=== PATIENT | male | born 1990 | race Caucasian/White ===

== ENCOUNTER 2024-01-21 15:39 | Emergency (ER) | payer SELFPAY ==
--- NOTE | ~2024-01-21 | US_ITS ---
TESTICULAR ULTRASOUND (Doppler ultrasound interrogation techniques used as needed for this exam.) Ordering provider: Tristan Harding APRN History: . scrotal pain, hx of testicular torsion . Comparison: None. FINDINGS: TESTICLES: Normal in size. The right measures 4.4x 2.5x 3 cm and the left measures 4.1x 2.1x 2.7 cm. Normal echogenicity bilaterally without mass lesion. Normal Doppler flow bilaterally. EPIDIDYMIDES: Normal in size. The right measures 1 cm and the left 1.5 cm. Normal echogenicity bilate rally. Both demonstrate normal Doppler flow. Right epididymal cyst is seen measuring 2.4 x 0.3 x 0.4 cm. HYDROCELE: Trace on the right. VARICOCELE: None. OTHER ABNORMALITY: None seen. IMPRESSION: Small epididymal cyst on the right side. Trace of hydrocele on the right side. No definite evidence o f torsion. Otherwise, normal testicular ultrasound. Reviewed, dictated and finalized at location A. IMPRESSION: Small epididymal cyst on the right side. Trace of hydrocele on the right side. No definite evidence of torsion. Otherwise, normal testicular ultrasound.
[2024-01-21 15:47] VITALS: BP 138/85; PULSE 63; RESP 20; TEMP 36.6; O2SAT 99
--- NOTE | 2024-01-21 15:48 | ED_ITS ---
HPI - Male Genitourinary General Chief complaint: Urogenital-Male Stated complaint: left testical pain Time Seen by Provider: 01/21/24 15:47 History of Present Illness HPI Narrative: 33-year-old male presents to the emergency room for evaluation of gradual onset right testicular pain over several days. Patient denies any scrotal injury or trauma. Denies any dysuria. Denies any penile discharge. Denies concerns for STDs. Patient states he does have a history of a testicular tor bharti over 20 years ago. Related Data Allergies Allergy/AdvReac Type Severity Reaction Status Date / Time No Known Allergies Allergy Unverified 01/21/24 15:40 Review of Systems Review of Systems: ROS unremarkable except for noted in HPI Exam Narrative: GENERAL: Well-appearing, well-nourished, no physical limitations, and in no acute distress. HEAD: Normocephalic, atraumatic. EYES: Conjunctivae normal, PERRLA and EOMI. CHEST: Clear to auscultation. No respiratory distress. No wheezes rales or rhonchi. HEART: Regular rate and rhythm. No murmur heard. Normal peripheral pulses. ABDOMEN: Soft, nontender, nondistended, normal active bowel sounds. : No testicular swelling, + Prehns sign, Cremasteric reflex present bilaterally BACK: No CVA tenderness EXTREMITIES: Normal range of motion. No edema. No clubbing or cyanosis SKIN: Warm, dry, no rash. No noted wounds NEURO: No focal deficits. Alert and oriented x3. MAEW. CN's II-XI intact bilaterally, normal gait PSYCH: Cooperative. Normal mood and affect. Course Vital Signs Vital signs: Vital Signs Temperature 36.6 C 01/21/24 15:47 Pulse Rate 63 01/21/24 15:47 Respiratory Rate 20 01/21/24 15:47 Blood Pressure 138/85 01/21/24 15:47 Pulse Oximetry 99 01/21/24 15:47 Oxygen Delivery Room Air 01/21/24 15:47 Temperature 36.6 C 01/21/24 15:47 Pulse Rate 63 01/21/24 15:47 Respiratory Rate 20 01/21/24 15:47 Blood Pressure 138/85 01/21/24 15:47 Pulse Oximetry 99 01/21/24 15:47 Oxygen Delivery Room Air 01/21/24 15:47 Discharge Plan Discharge Clinical Impression: Hydrocele Patient Disposition: Home, Self-Care Condition: Stable Instructions: Antibiotic Form, Hidrocele (ED), Testicle Pain (ED) Prescriptions: New naproxen 500 mg tablet,delayed release (DR/EC) 500 mg PO BID Qty: 14 0RF Follow-up/Referrals: Alexander Trinidad MD [Physician] - UNKNOWN,DOCTOR [Primary Care Provider] - Time of Disposition: 17:40
[2024-01-21 17:28] LABS: Appearance Urine Clear (Clear); Bilirubin Urine Negative (Negative); Blood Urine Negative (Negative); Color Urine Yellow (Yellow); Glucose Urine UA Negative (Negative); Ketones Urine 2+ mg/dL (Negative); Leukocyte Esterase Ur Negative LEU/UL (Negative); Nitrate Urine Negative (Negative); Protein Urine Negative (Negative); Specific Grav Ur 1.031 (1.001-1.035); pH Urine 5.5 (5.0-9.0)
[2024-01-21 17:29] LABS: Add Urine Microscopic? NO
[2024-01-21 17:57] VITALS: BP 134/76; PULSE 63; RESP 18; TEMP 36.7; O2SAT 99
== END 2024-01-21 17:58 | disposition home or self-care (01) ==
PROVIDERS: Emergency Provider Nurse Practitioner Family
DX: N43.3 Hydrocele, unspecified (principal)
CPT/HCPCS: 76870; 81003; 93976; 99284

== ENCOUNTER 2025-06-23 08:53 | Emergency (ER) | payer OTHER, SELFPAY ==
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
[2025-06-23 08:58] VITALS: BP 137/80; PULSE 79; RESP 18; TEMP 36.5; O2SAT 99
--- OUTSIDE RECORDS SUMMARY | 2025-06-23 09:07 | XMS_ITS | Clinical Summary ---
Author Organization [facility] [address] [facility] Address [address] [place] [address] Care Team Providers Care Dredge Pump Operator Name Role Phone Rayna Dickson Primary Care Provider [phone] Allergies No known active allergies Medications omeprazole (PriLOSEC) 20 mg capsuleIndicatio ns:Gastroesophag eal reflux disease, unspecified whether esophagitis present Take 1 capsule (20 mg total) by mouth daily 30 capsule 1 09/13/[address] (VOLTAREN) 75 mg EC tablet Take one tablet PO BID PRN 60 tablet 09/24/2020 Active tiZANidine (ZANAFLEX) 4 mg tablet Take one tablet PO HS PRN 30 tablet 09/24/2020 Active Active Problems Problem Noted Date Diagnosed Date BMI 39.0-39.9,adult 09/13/2020 Assessment & Plan (09/13/2020 1:50 PM GROUND SUPPORT EQUIPMENT MECHANIC): Obesity is unchanged. Discussed the patient's BMI. The BMI is above average. BMI management plan is completed. BMI Follow-up includes: nutrition counseling, exercise counseling and education provided. Testicular torsion 09/13/2020 Encounter to establish care 09/13/2020 Assessment & Plan (09/13/2020 9:37 PM GROUND SUPPORT EQUIPMENT MECHANIC): Fasting labs entered, will notify patient of results as available Polyarthralgia 09/13/2020 Assessment & Plan (09/13/2020 9:35 PM GROUND SUPPORT EQUIPMENT MECHANIC): Will evaluate further with imaging and labs, will notify of results as available Sciatica of right side 09/13/2020 Assessment & Plan (09/13/2020 9:36 PM GROUND SUPPORT EQUIPMENT MECHANIC): Will evaluate further with imaging, will notify of results as available Will refer to PT for further evaluation and treatment Neck pain 09/13/2020 Assessment & Plan (09/13/2020 9:36 PM GROUND SUPPORT EQUIPMENT MECHANIC): Will evaluate further with imaging, will notify of results as available Cervical radiculopathy 09/13/2020 Assessment & Plan (09/13/2020 9:36 PM GROUND SUPPORT EQUIPMENT MECHANIC): Will evaluate further with imaging, will notify of results as available Gastroesophageal reflux disease 09/13/2020 Assessment & Plan (09/13/2020 9:36 PM GROUND SUPPORT EQUIPMENT MECHANIC): Advised cutting back on caffeine, weight loss Add prilosec every day Discussed gi consult if unresolving or if worsening Immunizations Immunization Administration Dates Next Due Influenza, Unspecified 04/05/2020(Deferred: Giselle ent Refused) Medical History Medical History Date Comments ADHD (attention deficit hyperactivity disorder) GERD (gastroesophageal reflux disease) Gastric reflux Family History Medical History Relation Name Comments No Known Problems Father No Known Problems Mother Relation Name Status Comments Father Alive Mother Alive Social History Tobacco Use Types Packs/Day Years Used Date Smoking Tobacco: Never Smokeless Tobacco: Never PHQ-2 Answer Date Recorded PHQ-2 Total Score (If total score is 3 or more points, staff should administer the PHQ-9) 0 09/13/2020 Personal Safety Answer Date Recorded Getting School Help Needed Not on file 09/05 Sex and Gender Information Value Date Recorded Sex Assigned at Not on file Legal Sex Male 3:25 PM GROUND SUPPORT EQUIPMENT MECHANIC Gender Identity Not on file Sexual Orientation Not on file 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 Not on file Not on file Last Filed Vital Signs Vital Sign Reading Time Taken Comments Blood Pressure 100/75 09/13/2020 1:46 PM GROUND SUPPORT EQUIPMENT MECHANIC Pulse 75 09/13/2020 1:46 PM GROUND SUPPORT EQUIPMENT MECHANIC Temperature 36.1 C (96.9 F) 09/13/2020 1:46 PM GROUND SUPPORT EQUIPMENT MECHANIC Respiratory Rate - - Oxygen Saturation 99% 09/13/2020 1:46 PM GROUND SUPPORT EQUIPMENT MECHANIC Inhaled Oxygen Concentration - - Weight 135.6 kg (299 lb) 09/24/2020 8:31 AM CDT Height 185.4 cm (6' 1) 09/24/2020 8:31 AM CDT Body Mass Index 39.45 09/24/2020 8:31 AM CDT Plan of Treatment Not on file Insurance CHO[facility] HMO/PPO Address: [place] [address] Care Teams Dredge Pump Operator Relationship Specialty Start Date End Date Rayna Dickson PA PCP - General Gas Main Fitter 09/11/20
--- OUTSIDE RECORDS SUMMARY | 2025-06-23 09:07 | XMS_ITS | Clinical Summary ---
Author Organization [facility] Address [address] [place] [address] Care Team Providers Care Motion Study Analyst Name Role Phone Kim Banda MD Primary Care Provider [phone] Source Comments [facility],non-owned Affiliates and Associated Physician Practices is amultiple site organization consisting of ambulatory clinics and hospital sitesin [place], [place], [place] and [place]. This disclosure is being madepursuant to the Care Everywhere program and may not contain all information available regarding this patient. Last updated 18.[facility] Allergies No known active allergies Medications * Be aware that medications may not be up to date on this document. Alwaysverify current medications with the patient. No known medications Active Problems Problem Noted Date Diagnosed Date Abdominal pain 11/08/2009 Overview (04/05/2015): Family History Medical History Relation Name Comments IBD Mother Relation Name Status Comments Mother Social History Tobacco Use Types Packs/Day Years Used Date Smoking Tobacco: Former Cigarettes 0 Q uit: 10/09/2009 Alcohol Use Standard Drinks/Week Comments No 0 (1 standard drink = 0.6 oz pur e alcohol) Sex and Gender Information Value Date Recorded Sex Assigned at Not on file Legal Sex Male 8:39 AM ELECTRICIAN THIRD Gender Identity Not on file Sexual Orientation Not on file Last Filed Vital Signs Vital Sign Reading Time Taken Comments Blood Pressure 116/64 11/08/2009 1:39 PM CDT Pulse - - Temperature - - Respiratory Rate - - Oxygen Saturation - - Inhaled Oxygen Concentration - - Weight 103.2 kg (227 lb 9.6 oz) 11/08/2009 1:39 PM CDT Height 177.1 cm (5' 9.72) 11/08/2009 1:39 PM CD T Body Mass Index 32.92 11/08/2009 1:39 PM CDT Plan of Treatment Health Maintenance Due Date Last Done Comments HIV SCREENING 2007 HEPATITIS C SCREENING 06/04/2010 DTAP/TDAP/TD VACCINES (1 - Tdap) 2011 HEPATITIS B VACCINE (1 of 3 - 19+ 3-dose series) 2011 HPV VACCINE (1 - 3-dose SCDM series) 2019 DEPRESSION SCREENING 07/06/2024 COVID-19 VACCINE (1 - 2024-2 6 season) 2025 INFLUENZA VACCINE (#1) 2025 ZOSTER VACCINE (1 of 2) 2042 HIB VACCINE Aged Out No longer eligi ble based on patient's age to complete this topic MENINGOCOCCAL (Group B) VACC INE SHARED DECISION-MAKING Aged Out No longer eligibl e based on patient's age to complete this topic MENINGOCOCCAL GROUPS A/C/Y/W VACCINE Aged Out No longer eligible b ased on patient's age to complete this topic PNEUMOCOCCAL VACCINE Aged Out No long er eligible based on patient's age to complete this topic Care Teams Motion Study Analyst Relationship Specialty Start Date End Date Kim Banda MD PCP - General 11/08/09
[2025-06-23 09:21] VITALS: BP 149/75; PULSE 78; RESP 14; O2SAT 98
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
[2025-06-23 09:52] LABS: Hematocrit 44.8 % (42.0-52.0); Hemoglobin 14.8 g/dL (14.0-18.0); Immature Granulocyte Percent A 0.6 % (0-0.5); Lymphocytes Absolute Auto 1.18 K/mm3 (0.9-3.2); Mean Corpuscular HGB Conc 33.0 g/dl (32-36); Mean Corpuscular Hemoglobin 29.0 pg (26-34); Mean Corpuscular Volume 87.7 fl (80-100); Nucleated Red Blood Cells Absolute Auto 0.000 K/mm3 (0.0-0.012); Nucleated Red Blood Cells Perc 0.0 % (0.0-0.2); Platelet Count Result 227 k/mm3 (150-375); Red Blood Count 5.11 M/mm3 (4.6-6.20); White Blood Count 7.2 K/mm3 (4.5-10.0)
[2025-06-23 10:09] LABS: Alanine Aminotransferase 39 U/L (6-50); Albumin Level 4.5 g/dL (3.5-5.1); Alkaline Phosphatase 62 U/L (38-126); Anion Gap 8 mmol/L (4-12); Aspartate Amino Transferase 38 U/L (17-59); Bilirubin,Total 0.6 mg/dL (0.2-1.3); Blood Urea Nitrogen 17 mg/dL (9-20); Calcium 9.4 mg/dL (8.4-10.2); Carbon Dioxide 26 mmol/L (22-30); Chloride 104 mmol/L (98-107); Estimated CRCL calculation 125 ml/min; Estimated Glomerular Filt Rate > 60; Glucose 113 mg/dL (65-110); Potassium 4.6 mmol/L (3.4-5.0); Sodium 138 mmol/L (137-145); Total Protein 7.9 g/dL (6.3-8.2)
--- OUTSIDE RECORDS SUMMARY | 2025-06-23 10:43 | XMS_ITS | Clinical Summary ---
Author Organization [facility] Address [address] [place] [address] Care Team Providers Care Railway Track Plant Operator Name Role Phone Kim Banda MD Primary Care Provider [phone] Source Comments [facility],non-owned Affiliates and Associated Physician Practices is amultiple site organization consisting of ambulatory clinics and hospital sitesin [place], [place], [place] and [place]. This disclosure is being madepursuant to the Care Everywhere program and may not contain all information available regarding this patient. Last updated 18.[facility] Allergies No known active allergies Medications * [...] on file Legal Sex Male 8:39 AM AGRICULTURAL SCIENCES PROFESSOR Gender Identity Not on file Sexual Orientation [...] age to complete this topic Care Teams Railway Track Plant Operator Relationship Specialty Start Date End Date Kim Banda MD PCP - General 11/08/09
--- OUTSIDE RECORDS SUMMARY | 2025-06-23 10:43 | XMS_ITS | Clinical Summary ---
Author Organization [facility] Address [address] [place] [address] Care Team Providers Care Seal Delivery Vehicle Team Technician Name Role Phone Unavailable Primary Care Provider Unavailabl e Social History Tobacco Use Types Packs/Day Years Used Date Smoking Tobacco: Never Assessed Sex and Gender Information Value Date Recorded Sex Assigned at Not on file Legal Sex Male 4:45 PM CDT Gender Identity Not on file Sexual Orientation Not on file Last Filed Vital Signs Vital Sign Reading Time Taken Comments Blood Pressure 134/82 02/18/2018 1:12 PM CDT Pulse 67 02/18/2018 1:12 PM CDT Temperature - - Respiratory Rate - - Oxygen Saturation - - Inhaled Oxygen Concentration - - Weight 126.2 kg (278 lb 4 oz) 02/18/2018 1:12 PM CDT Height 185.4 cm (6' 1) 02/18/2018 1:12 PM CDT Body Mass Index 36.71 02/18/2018 1:12 PM CDT Plan of Treatment Health Maintenance Due Date Last Done Comments Annual Physical 1995 Hepatitis C 2010 DTaP, Tdap and Td Vaccines ( 1 - Tdap) 2011 Hepatitis B Vaccines (1 of 3 - 19+ 3-dose series) 2011 HPV Vaccines (1 - 3-dose SCD M series) 2019 COVID-19 Vaccine ( - 2024-2 6 season) 2025 Influenza Adult (#1) 2025 Hepatitis A Vaccines Aged Out No long er eligible based on patient's age to complete this topic Meningococcal B Vaccine Aged Out No l onger eligible based on patient's age to complete this topic Meningococcal Vaccine Aged Out No ronen almaz eligible based on patient's age to complete this topic Pneumococcal Vaccine: Pediat rics (0 to 5 Years) and At-Risk Patients (6 to 49 Years) Aged Out No longer eligible b ased on patient's age to complete this topic RSV Immunizations Under 20 Months Aged Out No longer eligible based on patient's age to complete this topic
--- OUTSIDE RECORDS SUMMARY | 2025-06-23 10:43 | XMS_ITS | Clinical Summary ---
Author Organization [facility] [address] [facility] Address [address] [place] [address] Care Team Providers Care Furniture Removalist Name Role Phone Rayna Dickson Primary Care Provider [phone] Allergies No known active allergies Medications omeprazole [...] 09/13/2020 Assessment & Plan (09/13/2020 1:50 PM UI SOFTWARE ENGINEER): Obesity is unchanged. Discussed the patient's BMI. The BMI is above average. BMI management plan is completed. BMI Follow-up includes: nutrition counseling, exercise counseling and education provided. Testicular torsion 09/13/2020 Encounter to establish care 09/13/2020 Assessment & Plan (09/13/2020 9:37 PM UI SOFTWARE ENGINEER): Fasting labs entered, will notify patient of results as available Polyarthralgia 09/13/2020 Assessment & Plan (09/13/2020 9:35 PM UI SOFTWARE ENGINEER): Will evaluate further with imaging and labs, will notify of results as available Sciatica of right side 09/13/2020 Assessment & Plan (09/13/2020 9:36 PM UI SOFTWARE ENGINEER): Will evaluate further with imaging, will notify of results as available Will refer to PT for further evaluation and treatment Neck pain 09/13/2020 Assessment & Plan (09/13/2020 9:36 PM UI SOFTWARE ENGINEER): Will evaluate further with imaging, will notify of results as available Cervical radiculopathy 09/13/2020 Assessment & Plan (09/13/2020 9:36 PM UI SOFTWARE ENGINEER): Will evaluate further with imaging, will notify of results as available Gastroesophageal reflux disease 09/13/2020 Assessment & Plan (09/13/2020 9:36 PM UI SOFTWARE ENGINEER): Advised cutting back on caffeine, weight loss [...] on file Legal Sex Male 3:25 PM UI SOFTWARE ENGINEER Gender Identity Not on file Sexual Orientation Not on file 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 Not on file Not on file Last Filed Vital Signs Vital Sign Reading Time Taken Comments Blood Pressure 100/75 09/13/2020 1:46 PM UI SOFTWARE ENGINEER Pulse 75 09/13/2020 1:46 PM UI SOFTWARE ENGINEER Temperature 36.1 C (96.9 F) 09/13/2020 1:46 PM UI SOFTWARE ENGINEER Respiratory Rate - - Oxygen Saturation 99% 09/13/2020 1:46 PM UI SOFTWARE ENGINEER Inhaled Oxygen Concentration - - Weight 135.6 kg (299 lb) 09/24/2020 8:31 AM CDT Height 185.4 cm (6' 1) 09/24/2020 8:31 AM CDT Body Mass Index 39.45 09/24/2020 8:31 AM CDT Plan of Treatment Not on file Insurance CHOICE PL[facility] HMO/PPO Address: [place] [address] Care Teams Furniture Removalist Relationship Specialty Start Date End Date Rayna Dickson PA PCP - General Powder Guard 09/11/20
[2025-06-23 10:44] LABS: Add Urine Microscopic? YES; Appearance Urine Cloudy (Clear); Glucose Urine UA Negative (Negative); Leukocyte Esterase Ur Negative LEU/UL (Negative); Nitrate Urine Negative (Negative); Non Pathogenic Casts 0-2; Specific Grav Ur 1.014 (1.001-1.035)
[2025-06-23] MEDS: KETOROLAC 30 MG/ML VIAL (*BKC) IV PUSH (11:29)
[2025-06-23] MEDS: CYCLOBENZAPRINE HCL 10 MG TABLET PO (11:29)
[2025-06-23 11:31] VITALS: BP 128/72; PULSE 62; RESP 14; O2SAT 99
== END 2025-06-23 11:41 | disposition home or self-care (01) ==
PROVIDERS: Emergency Provider Nurse Practitioner Family
DX: S16.1XXA Strain of muscle, fascia and tendon at neck level, initial encounter (principal); V87.7XXA Person injured in collision between other specified motor vehicles (traffic), initial encounter
CPT/HCPCS: 36415; 70450; 71045; 72125; 73521; 80053; 81001; 85025; 96374; 99284; A9270; J1885